=== PATIENT | male | born 1960 | race Hispanic/Latino ===

== ENCOUNTER 2023-12-10 18:25 | Emergency (ER) | payer OTHER ==
[~2023-12-10] VITALS: Ht 167.6 cm; Wt 93.4 kg
[~2023-12-10 18:25] MED LIST: AMLODIPINE BESY10 MG PO; GLIPIZIDE ER5 MG PO; LEVOTHYROXINE50 MCG PO; METFORMIN HCL500 MG PO; PRAVASTATIN SOD80 MG PO
[2023-12-10] MEDS: ACETAMINOPHEN 325 MG TAB PO STA (18:55)
[2023-12-10 19:12] LABS: BILIRUBIN,URINE NEGATIVE (NEGATIVE); CLARITY,URINE CLEAR (CLEAR); COLOR,URINE YELLOW (YELLOW); GLUCOSE, URINE NEGATIVE (NEGATIVE); KETONES,URINE NEGATIVE (NEGATIVE); LEUKOCYTE ESTERASE ,URINE SMALL (NEGATIVE); NITRITE,URINE NEGATIVE (NEGATIVE); PH,URINE 6.5 (5 - 7); PROTEIN,URINE DIPSTICK NEGATIVE (NEGATIVE); URINE UROBILINOGEN 0.2 mg/dL (0.2 - 1)
[2023-12-10 19:23] LABS: BACTERIA,URINE RARE /HPF; EPITHELIAL CELLS,URINE FEW /LPF; RBC,URINE 0-5 /HPF (0-5)
[2023-12-10] MEDS ORDERED: CIPRO500 MG PO (20:30)
[2023-12-10 20:32] VITALS: PULSE 78; RESP 18; TEMP 99; O2SAT 98
[2023-12-10] MEDS ORDERED: ULTRAM 50MG50 MG PO (20:42)
== END 2023-12-10 20:30 | disposition home or self-care (01) ==
LOC: ER 18:46
DX: R50.9 Fever, unspecified (principal); N43.3 Hydrocele, unspecified; N45.1 Epididymitis; I10 Essential (primary) hypertension; E11.9 Type 2 diabetes mellitus without complications
CPT/HCPCS: 76870; 81001; 93976; 99283

== ENCOUNTER 2024-12-09 01:15 | Emergency (ER) | payer OTHER ==
[~2024-12-09] VITALS: Ht 167.6 cm; Wt 90.7 kg
[~2024-12-09 01:15] MED LIST changes: +CIPRO500 MG PO; +ULTRAM 50MG50 MG PO
[2024-12-09 01:34] VITALS: TEMP 98.1
[2024-12-09 02:11] VITALS: PULSE 80; RESP 17; O2SAT 95
[2024-12-09 02:14] LABS: BASOPHILS % 0.9 % (0.0-1.0); EOSINOPHILS % 3.8 % (0.0-6.0); LYMPHOCYTES % 24.6 % (18.0-39.1); MONOCYTES % 12.3 % (4.4-11.3); NEUTROPHILS % 57.2 % (38.7-80.0); RED CELL DISTRIBUTION WIDTH 13.0 % (11.7-14.4)
[2024-12-09] MEDS: ALBUTEROL SULF 0.083% NEB SOLN 3 ML NEB NEB STA (02:15)
[2024-12-09] MEDS: IPRATROPIUM BROMIDE 0.02% 2.5 ML NEB NEB ONE (02:16)
[2024-12-09] MEDS ORDERED: ALBUTEROL SULF 0.083% NEB SOLN 3 ML NEB ONE (02:20)
[2024-12-09 02:25] LABS: CORONAVIRUS COVID-19 AG NEGATIVE (NEGATIVE)
[2024-12-09 02:33] LABS: EST GLOMERULAR FILTRATION RATE 102.0 ML/MIN (>=60)
[2024-12-09 03:23] VITALS: PULSE 75; RESP 18
[2024-12-09] MEDS ORDERED: AZITHROMYCIN250 MG PO (03:28)
[2024-12-09] MEDS ORDERED: VENTOLIN HFA18 GM INH (03:28)
[2024-12-09 03:47] VITALS: BP 132/68; PULSE 71; RESP 15; TEMP 97.7; O2SAT 100
== END 2024-12-09 03:50 | disposition home or self-care (01) ==
LOC: ER 01:43
DX: R05.9 Cough, unspecified (principal); J20.9 Acute bronchitis, unspecified; R06.2 Wheezing; I10 Essential (primary) hypertension; E11.65 Type 2 diabetes mellitus with hyperglycemia; E78.5 Hyperlipidemia, unspecified; R94.31 Abnormal electrocardiogram [ECG] [EKG]; F17.210 Nicotine dependence, cigarettes, uncomplicated
CPT/HCPCS: 36415; 71045; 80053; 83880; 84484; 85025; 93005; 94799; 99284